=== PATIENT | female | born 1950 | race Caucasian/White ===

== ENCOUNTER 2020-11-01 08:37 | Outpatient (CLI) | payer MEDICARE | END 2020-11-01 08:38 | disposition home or self-care (01) | LOC: CSHCT 08:37 | PROVIDERS: ATTEND Internal Medicine Hematology & Oncology | DX: C88.4 Extranodal marginal zone B-cell lymphoma of mucosa-associated lymphoid tissue [MALT-lymphoma] (principal) | CPT/HCPCS: 70491; 71260; 74177 ==

== ENCOUNTER 2022-05-28 10:41 | Outpatient (CLI) | payer MEDICARE | END 2022-05-28 10:42 | disposition home or self-care (01) | LOC: CSHCT 10:41 | PROVIDERS: ATTEND Internal Medicine Hematology & Oncology | DX: C88.4 Extranodal marginal zone B-cell lymphoma of mucosa-associated lymphoid tissue [MALT-lymphoma] (principal); R59.0 Localized enlarged lymph nodes; J32.0 Chronic maxillary sinusitis; M43.16 Spondylolisthesis, lumbar region | CPT/HCPCS: 70491; 71260; 74177; 82565 ==

== ENCOUNTER 2022-05-30 09:10 | Day surgery (SDC) | payer MEDICARE ==
[2022-05-30 10:25] LABS: INR-International Normal Ratio 0.9
[2022-05-30 10:27] VITALS: BP 133/63; TEMP 97.4
== END 2022-05-30 12:30 | disposition home or self-care (01) ==
LOC: CSHCT 09:10
PROVIDERS: ATTEND Internal Medicine Hematology & Oncology
DX: D70.4 Cyclic neutropenia (principal); D69.6 Thrombocytopenia, unspecified; M35.00 Sjogren syndrome, unspecified; F41.9 Anxiety disorder, unspecified; D46.9 Myelodysplastic syndrome, unspecified; F32.A Depression, unspecified; Z79.82 Long term (current) use of aspirin; Z79.899 Other long term (current) drug therapy; Z88.5 Allergy status to narcotic agent; Z88.0 Allergy status to penicillin; Z90.710 Acquired absence of both cervix and uterus; Z98.890 Other specified postprocedural states
CPT/HCPCS: 38222; 85097; 85610; 88184; 88185; 88237; 88264; 88280; 88305; 88311; 88313; 88341; 88342; 99152